=== PATIENT | male | born 2000 | race Caucasian/White ===

== ENCOUNTER 2021-01-23 18:11 | Emergency (ER) | payer OTHER ==
[~2021-01-23] VITALS: Ht 180.3 cm; Wt 83.5 kg
[2021-01-23] MEDS ORDERED: IBUP200C25 PO (18:19)
[2021-01-23 20:30] VITALS: BP 143/80
== END 2021-01-23 20:44 | disposition home or self-care (01) ==
LOC: M ED 18:11
DX: J03.90 Acute tonsillitis, unspecified (principal)